=== PATIENT | female | born 1995 | race Caucasian/White ===

== ENCOUNTER 2019-06-29 00:58 | Emergency (ER) | payer SELFPAY ==
[~2019-06-29] VITALS: Ht 165.1 cm; Wt 81.6 kg
--- NOTE | 2019-06-29 01:00 | NUR ---
PT [facility] BLS. TAKEN TO BED 7
[2019-06-29 01:03] VITALS: BP 130/90
--- NOTE | 2019-06-29 01:05 | NUR ---
24 YEAR OLD FEMALE COMPLAINS OF BILATERAL ARM SPASMS. PATIENT STATES SHE HAS HAD THIS BEFORE WHEN SHE GETS ANXIETY, AND IS FEELING ANXIOUS AT THIS TIME. PATIENT AOX4, BREATHING EVEN AND UNLABORED, SKIN WARM AND DRY. PT HAS NO OTHER COMPLAINTS AT THIS TIME SUCH CP, N/V/D. PT PLACED ON MONITOR, VS STABLE. ERMD MADE AWARE. PMH - DENIES ALLERGIES - NKA
--- NOTE | 2019-06-29 01:08 | NUR ---
Dr. Ross examining patient.
[2019-06-29] MEDS: LORazepam 2 MG/ML VIAL IM ONE (01:22)
[2019-06-29 02:04] VITALS: BP 123/81
--- NOTE | 2019-06-29 02:06 | NUR ---
Patient discharged with v/s stable. Written and verbal after care instructions given and explained. Patient alert, oriented and verbalized understanding of instructions. Ambulatory with steady gait. All questions addressed prior to discharge. ID band removed. Patient advised to follow up with PMD. Rx of given. Patient educated on indication of medication including possible reaction and side effects. Opportunity to ask questions provided and answered. pt is marilux4, walk s in steady gait.No c/o CP or SOB. Pt denies any pain. Pt d/c.
== END 2019-06-29 02:06 | disposition home or self-care (01) ==
LOC: MED 00:58
DX: F41.9 Anxiety disorder, unspecified (principal); M62.838 Other muscle spasm
CPT/HCPCS: 96372; 99283; J2060